=== PATIENT | male | born 1970 ===

== ENCOUNTER 2018-03-09 20:22 | Emergency (ER) | payer BC ==
[2018-03-09 20:49] VITALS: TEMP 98.7
[2018-03-09] MEDS ORDERED: Sodium Chloride 0.9% 1,000 ML IV ONE (21:06)
[2018-03-09] MEDS ORDERED: DiphenhydrAMINE 50 mg/ml Inj IVP STA (21:06)
--- NOTE | 2018-03-09 21:06 | C.PDOC ---
History Of Present Illness 48 y/o male presents to the ED complaining of diffuse urticarial rash after being on Keflex and bactrim for cellulitis of his left foot. The patient reports his cellulitis has improved . He states he has one more day left of the treatment. The patient denies any fever, chills nausea or vomiting.Speaking in complete sentences,. Tolerating po Time Seen by Provider: 03/09/18 21:06 Chief Complaint (Nursing): Allergic Reaction History Per: Patient History/Exam Limitations: no limitations Onset/Duration Of Symptoms: Days Current Symptoms Are (Timing): Still Present Context: Other (recent cellulitis) Possible Cause: Medication Associated Symptoms: Skin Rash Home/EMS Treatment: None, Other (Keflex and bactrim) Severity: Moderate Pain Scale Rating Of: 3 Recent travel outside of the [place]: No Additional History Per: Patient Past Medical History Reviewed: Historical Data, Nursing Documentation, Vital Signs Vital Signs: Last Vital Signs Temp 98.7 F 03/09/18 20:45 Pulse 87 03/09/18 20:45 Resp 20 03/09/18 20:45 BP 119/80 03/09/18 20:45 Pulse Ox 98 03/09/18 20:45 - Medical History PMH: No Chronic Diseases Surgical History: Appendectomy, Tonsillectomy Family History: States: Unknown Family Hx - Social History Hx Tobacco Use: No Hx Alcohol Use: Yes Hx Substance Use: No Review Of Systems Constitutional: Negative for: Fever, Chills Eyes: Negative for: Redness ENT: Negative for: Throat Pain Cardiovascular: Negative for: Chest Pain Respiratory: Negative for: Shortness of Breath Gastrointestinal: Negative for: Nausea, Vomiting, Abdominal Pain Skin: Positive for: Rash (urticarial rash), Other (healing cellulitis) Neurological: Negative for: Weakness Psych: Negative for: Anxiety Physical Exam - Physical Exam Appears: Non-toxic, No Acute Distress Skin: Warm, Dry, Other (diffuse urticarial rash. Healing cellulitis over the left, fourth toe) Head: Normacephalic Eye(s): bilateral: Normal Inspection Oral Mucosa: Moist Throat: No Drooling Neck: Trachea Midline, Supple Chest: Symmetrical Cardiovascular: Rhythm Regular Respiratory: No Rales, No Rhonchi, No Wheezing Gastrointestinal/Abdominal: Soft, No Tenderness, No Distention Male Genital: Normal Inspection Extremity: Bilateral: Atraumatic, Normal Color And Temperature Pulses: Left Dorsalis Pedis: Normal, Right Dorsalis Pedis: Normal Neurological/Psych: Oriented x3 Gait: Steady ED Course And Treatment O2 Sat by Pulse Oximetry: 98 (RA) Pulse Ox Interpretation: Normal Progress Note: Ordered: benadryl 25 mg IV, pepcid 20 mg IV, SOLU-Medrol 125 mg IV, and IV Fluids Reevaluation Time: 23:30 Reassessment Condition: Improved Critical Care Time - Critical Care Note Total Time (in mins): 30 Documented critical care: time excludes all time spent performing seperately billable procedures. Disposition Counseled Patient/Family Regarding: Studies Performed, Diagnosis, Need For Followup, Rx Given - Disposition Referrals: Tin Velez MD [Staff Provider] - Disposition: HOME/ ROUTINE Disposition Time: 21:06 Condition: FAIR Additional Instructions: Please return if symptoms recur. Also state that you are allergic to bactrim and keflex. 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 - Scribe Statement The provider has reviewed the documentation as recorded by the Scribe (Niecy Jones) Provider Attestation: All medical record entries made by the Scribe were at my direction and personally dictated by me. I have reviewed the chart and agree that the record accurately reflects my personal performance of the history, physical exam, medical decision making, and the department course for this patient. I have also personally directed, reviewed, and agree with the discharge instructions and disposition.
[2018-03-09] MEDS ORDERED: DiphenhydrAMINE 50 mg/ml Inj ONE (21:28)
[2018-03-09 22:25] VITALS: RESP 16
[2018-03-09 23:40] VITALS: BP 110/80; PULSE 75; O2SAT 100
== END 2018-03-09 23:40 | disposition home or self-care (01) ==
LOC: C.ER 20:22
DX: L50.0 Allergic urticaria (principal); T36.1X5A Adverse effect of cephalosporins and other beta-lactam antibiotics, initial encounter
CPT/HCPCS: 94770; 96361; 96374; 96375; 99285; J1200; J2930; J7030

== ENCOUNTER 2018-04-25 11:21 | Emergency (ER) | payer OTHER, BC ==
[2018-04-25 11:35] VITALS: BP 143/101; PULSE 80; RESP 18; TEMP 97.3; O2SAT 99
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
== END 2018-04-25 12:35 | disposition home or self-care (01) ==
LOC: C.ER 11:21
DX: S39.012A Strain of muscle, fascia and tendon of lower back, initial encounter (principal); V49.40XA Driver injured in collision with unspecified motor vehicles in traffic accident, initial encounter

== ENCOUNTER 2018-05-21 13:34 | Emergency (ER) | payer BC, OTHER ==
[2018-05-21 14:01] VITALS: RESP 20
--- NOTE | 2018-05-21 14:28 | C.PDOC ---
History Of Present Illness 48 yo male with no significant PMH came to ER for rash to the left groin. Pt notes "I got jock it on May 04, but now its cellulitis." Pt states he had an itchy rash which he had been using OTC Jock itch spray for with improvement. Pt believes that the area is now infection since yesterday after itching that area. States he had a similar episode in the past. 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 Denies dysuria, testicular pain, abdominal pain, thirst, polyuria, or fever. Time Seen by Provider: 05/21/18 13:50 Chief Complaint (Nursing): Abnormal Skin Integrity History Per: Patient Onset/Duration Of Symptoms: Days Quality Of Symptoms: Painful, Itching, Swollen Past Medical History Vital Signs: Last Vital Signs Temp 98.1 F 05/21/18 13:38 Pulse 101 H 05/21/18 13:38 Resp 20 05/21/18 13:38 BP 147/90 05/21/18 13:38 Pulse Ox 97 05/21/18 13:38 Surgical History: Appendectomy, Tonsillectomy Family History: States: Unknown Family Hx - Social History Hx Tobacco Use: No Hx Alcohol Use: Yes Hx Substance Use: No - Immunization History Hx Tetanus Toxoid Vaccination: Yes (2012) Hx Influenza Vaccination: No Hx Pneumococcal Vaccination: No Review Of Systems Except As Marked, All Systems Reviewed And Found Negative. Genitourinary: Positive for: Rash Physical Exam - Physical Exam Appears: Well, Non-toxic, No Acute Distress Skin: Warm, Dry, Rash ((+) erythematous scaling rash with satellite lesions in the left inguinal area.(+) 3 x3 cm area of erythema and warmth on the left upper thigh. ) Head: Atraumatic, Normacephalic Eye(s): bilateral: Normal Inspection, EOMI Nose: Normal Oral Mucosa: Moist Neck: Normal, Supple Chest: Symmetrical Respiratory: No Accessory Muscle Use Gastrointestinal/Abdominal: Normal Exam, Soft, No Tenderness Back: Normal Inspection Extremity: Normal ROM Neurological/Psych: Oriented x3, Normal Speech ED Course And Treatment O2 Sat by Pulse Oximetry: 97 Progress Note: DIscussed prevention and signs of concern. Instructed follow up with PMD in 3 days for re-evaluation or return to ER if symtpoms persist or worsen. Disposition - Disposition Disposition: HOME/ ROUTINE Disposition Time: 14:30 Condition: STABLE Additional Instructions: Follow up with your primary medical doctor or clinic in 2-5 days for further evaluation. Take medications as prescribed. Return to the emergency department at any time if symptoms persist or worsen. Prescriptions: Clindamycin [Cleocin] 300 mg PO QID #28 cap Ketoconazole 2% Cr [Nizoral] 1 applic TOP DAILY #1 tube Instructions: Skin Rash (DC) Forms: [employer] (Bulgarian) - Clinical Impression Clinical Impression: Tinea cruris, Cellulitis
[2018-05-21 15:02] VITALS: BP 130/80; PULSE 78; TEMP 98.3
[2018-05-21 17:05] VITALS: O2SAT 97
== END 2018-05-21 15:20 | disposition home or self-care (01) ==
LOC: C.ER 13:34
DX: B35.6 Tinea cruris (principal); L03.116 Cellulitis of left lower limb